=== PATIENT | female | born 1950 | race Caucasian/White ===

== ENCOUNTER 2017-11-30 12:58 | Emergency (ER) | payer MEDICARE, OTHER ==
[~2017-11-30 12:58] MED LIST: ISOVUE-370 76%-LOCM 1 ML ONE
[2017-11-30 14:00] LABS: #Eosinphils 0.1 thou/uL (0.0-0.7); #Lymphocytes 1.1 thou/uL (1.20-3.40); #Monocytes 0.2 thou/uL (0.11-0.59); #Neutrophils 3.6 thou/uL (1.40-6.50); %Basophils 0.3 % (0.0-1.0); %Eosinophils 2.7 % (0.0-10.0); %Lymphocytes 21.4 % (21.0-51.0); %Monocytes 4.1 % (0.0-10.0); %Neutrophils 71.5 % (42.0-75.0); Hemoglobin 14.2 g/dL (12.0-16.0); Mean Corpuscular HGB CONC 33.1 g/dL (32.0-36.0); Mean Corpuscular Hemoglobin 29.2 pg (27.0-31.0); Mean Corpuscular Volume 88.1 fL (78.0-98.0); Mean Platelet Volume 6.7 fL (7.4-10.4); Platelet Count 188 thou/uL (130-400); RBC Distribution Width 12.9 % (11.5-14.5); Red Blood Cell (RBC) Count 4.85 mill/uL (4.20-5.40)
[2017-11-30 14:22] LABS: ALT (SGPT) 8 U/L (8-55); AST (SGOT) 12 U/L (5-34); Albumin 4.2 g/dL (3.4-4.8); Alkaline Phosphatase 59 U/L (40-150); Anion Gap 11 mmol/L (10-20); BUN (Urea Nitrogen) 11 mg/dL (9.8-20.1); Bilirubin, Total 0.4 mg/dL (0.2-1.2); Calc. Creatinine Clearance 0 mL/min (70-130); Calcium 9.4 mg/dL (7.8-10.44); Carbon Dioxide 25 mmol/L (23-31); Chloride 105 mmol/L (98-107); Estimated GFR-MDRD 70; Globulin 2.8 g/dL (2.4-3.5); Glucose 99 mg/dL (80-115); Lipase 9 U/L (8-78); Potassium 4.2 mmol/L (3.5-5.1); Sodium 137 mmol/L (136-145)
[2017-11-30 15:37] LABS: Bilirubin Negative (Negative); Blood, Urine Negative (Negative); Clarity CLEAR (Clear); Glucose, Urine (Dipstick) Negative (Negative); Leukocyte Trace (Negative); Nitrite Negative (Negative); Protein, Urine (Dipstick) Negative (Neg-Trace); Specific Gravity, Urine 1.008 (1.002-1.036); Urobilinogen 0.2 mg/dL (0.2-1.0)
[2017-11-30 15:39] LABS: Bacteria/HPF None Seen HPF (None Seen); Hyaline Casts/LPF 0-3 HYALINE CAST LPF (0-3 Hyaline); RBC/HPF 0-3 HPF (0-3); Squamous Epithelial None Seen HPF (0-3); WBC/HPF None Seen HPF (0-3)
[2017-11-30] MEDS ORDERED: hydrOXYzine 25 MG TAB ONE (15:40)
[2017-11-30 15:51] LABS: CKMB 0.3 ng/mL (0-6.6); Troponin I Less than 0.010 ng/mL (< 0.028)
--- NOTE | 2017-11-30 17:15 | CT ---
CT ABDOMEN AND PELVIS WITH IV CONTRAST 11/30/17 HISTORY: Abdominal pain. FINDINGS: The lung bases are clear. Lobular cysts are present throughout the liver parenchyma. Gallbladder is s urgically absent. Tiny renal cysts are also evident. The spleen, adrenal glands, and pancreas are unremarkable. No enlarged lymph nodes or free fluid. The re is calcification throughout the arterial structures. The urinary bladder is unremarkable. Lack of oral contrast limits evaluation of the bowel. No evidence of bowel obstruction. A large amoun t of stool and gas distends the rectum, up to 9.1 cm. IMPRESSION: 1. Fecal impaction. 2. Atherosclerosis. 3. Status post cholecystectomy. POS: [facility]
== END 2017-11-30 19:03 | disposition home or self-care (01) ==
LOC: ERS 12:58
DX: K56.41 Fecal impaction (principal); E78.00 Pure hypercholesterolemia, unspecified; G20 Parkinson's disease; I95.9 Hypotension, unspecified; F41.9 Anxiety disorder, unspecified; Z79.899 Other long term (current) drug therapy; Z79.891 Long term (current) use of opiate analgesic
CPT/HCPCS: 36415; 74177; 80053; 81003; 81015; 82553; 83690; 84484; 85025; 87086; 93005